=== PATIENT | male | born 1995 | race Caucasian/White ===

== ENCOUNTER 2020-05-02 22:16 | Emergency (ER) | payer SELFPAY ==
[2020-05-02] MEDS ORDERED: PREDNISONE 20MG20 MG PO ×3 (22:38→22:47)
== END 2020-05-02 22:50 | disposition home or self-care (01) ==
LOC: FER 22:16
DX: R49.0 Dysphonia (principal); J02.9 Acute pharyngitis, unspecified; Z87.891 Personal history of nicotine dependence
CPT/HCPCS: 99282; J1040